=== PATIENT | female | born 1995 | race Caucasian/White ===

== ENCOUNTER 2017-04-11 14:11 | Emergency (ER) | payer SELFPAY ==
[2017-04-11 14:23] VITALS: BP 119/82
--- NOTE | 2017-04-11 15:36 | UC ---
Abdominal Pain Female HPI - HPI Summary HPI Summary: vomiting and diarrhea for three days. 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 she is able to hold down fluids. Seh denies bleeding or fever. she has well water. 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 No prior abd surgery. - History of Current Complaint Chief Complaint: UCGI Stated Complaint: VOMITING Time Seen by Provider: 04/11/17 15:24 Hx Obtained From: Patient Hx Last Menstrual Period: 05/13/14 Onset/Duration: Gradual Onset, Lasting Days Timing: Constant Severity Initially: Moderate Severity Currently: Mild Aggravating Factor(s): Food Associated Signs and Symptoms: Positive: Vomiting, Other: - she has some cramping that is short lived.. Negative: Diaphoresis, Fever, Cough, Chest Pain , Dizzy, Back Pain, Constipation, Blood in Stool, Urinary Symptoms, Vaginal Bleeding, Vaginal Discharge Allergies/Adverse Reactions: Allergies Allergy/AdvReac Type Severity Reaction Status Date / Time No Known Allergies Allergy Verified 04/11/17 14:23 PMH/Surg Hx/FS Hx/Imm Hx Previously Healthy: Yes - Surgical History Surgical History: Yes Surgery Procedure, Year, and Place: ear tubes - Family History Known Family History: Positive: Other - no gi related disease. - Social History Occupation: Employed Full-time Alcohol Use: None Substance Use Type: None Smoking Status (MU): Never Smoked Tobacco - Immunization History Vaccination Up to Date: Yes Review of Systems Gastrointestinal: Vomiting, Diarrhea All Other Systems Reviewed And Are Negative: Yes Physical Exam Triage Information Reviewed: Yes Appearance: Well-Appearing, No Pain Distress, Well-Nourished Vital Signs: Initial Vital Signs Temp 98.0 F 04/11/17 14:19 Pulse 71 04/11/17 14:19 Resp 16 04/11/17 14:19 BP 119/82 04/11/17 14:19 Pulse Ox 99 04/11/17 14:19 Vital Signs Reviewed: Yes ENT Exam: Normal Neck exam: Normal Respiratory Exam: Normal Cardiovascular Exam: Normal Abdominal Exam: Other Abdomen Description: Negative: CVA Tenderness (R), CVA Tenderness (L), Distended , Guarding - ruq tenderness without guarding and neg brian's. Musculoskeletal Exam: Normal Neurological Exam: Normal Psychological Exam: Normal Skin Exam: Normal Abd Pain Female Course/Dx - Course Course Of Treatment: no signs of dehydration. there is no serious risk factors for serious invasive gi disease. she will return for any worsening. - Differential Dx/Diagnosis Provider Diagnoses: gastroenteritis. Discharge - Discharge Plan Condition: Good Disposition: HOME Prescriptions: Ondansetron ODT TAB* [Zofran 4 MG Odt TAB*] 4 mg PO Q8H PRN #8 tab.odt PRN Reason: Vomiting Patient Education Materials: Gastroenteritis (ED) Forms: *Work Release Referrals: HECTOR Garza [Primary Care Provider] - If Needed
== END 2017-04-11 15:49 | disposition home or self-care (01) ==
LOC: UCCORT 14:11
DX: K52.9 Noninfective gastroenteritis and colitis, unspecified (principal)
CPT/HCPCS: 81003; 84702; 99212; G0463

== ENCOUNTER 2017-10-20 16:11 | Emergency (ER) | payer OTHER ==
[2017-10-20 16:33] VITALS: BP 126/64
[2017-10-20] MEDS ORDERED: NS 0.9% 1000 ML* 1,000 ML IV ONE (16:48)
--- NOTE | 2017-10-20 16:48 | UC ---
- HPI Summary HPI Summary: C/O N/V in . Worse in the last several weeks.j EDC 04/01/18. 16+5 weeks. Now having vomiting with diarrhea and dizziness with some spinning with her eyes closed. - History of Current Complaint Chief Complaint: UCGI Stated Complaint: VOMITING,DIARRHEA,DIZZINESS Hx Obtained From: Patient Chief Complaint: Other: - Nausea and vomiting with diarrhea and dizziness Onset/Duration: Started Days Ago - 2-3, Still Present Timing: Intermittent Severity: Moderate Current Severity: Moderate Pain Intensity: 8 Location of Pain: Other: - Headache Character: Dull Aggravating Factors: Nothing Alleviating Factors: Nothing Associated Signs and Symptoms: Positive: Fever, Nausea, Vomiting - Assessment Hx Now: Yes - 16+5 Expected Date of Delivery: 04/01/18 Heart Rate via Doppler: 155 Hx : 1 Hx Para: 0 SAB: 0 IEA: 0 History of Ectopic : No Hx Pelvic Inflammatory Disease: No Vaginal Bleeding Amount: None Contraction Frequency: none Hx Hysterectomy: No History of STI/STD: No - Risk Factors Ectopic Risk Factor: Negative - Allergies/Home Medications Allergies/Adverse Reactions: Allergies Allergy/AdvReac Type Severity Reaction Status Date / Time No Known Allergies Allergy Verified 10/20/17 16:23 Home Medications: Home Medications Pnv No.103/Folic/Om3s/Fish Oil [ Gummies] 1 chw PO DAILY 10/20/17 [ History Confirmed 10/20/17] PMH/Surg Hx/FS Hx/Imm Hx Previously Healthy: Yes - Surgical History Surgical History: Yes Surgery Procedure, Year, and Place: ear tubes - Family History Known Family History: Positive: Other - no gi related disease. Negative: Cardiac Disease, Diabetes - Social History Occupation: Employed Full-time Lives: Alone - with BF Alcohol Use: None Substance Use Type: None Smoking Status (MU): Former Smoker When Did the Patient Quit Smoking/Using Tobacco: 2013 - Immunization History Vaccination Up to Date: Yes Review of Systems Constitutional: Fever, Chills ENT: Sinus Congestion, Sinus Pain/Tenderness Gastrointestinal: Vomiting, Diarrhea, Nausea Is Patient Immunocompromised?: Yes - All Other Systems Reviewed And Are Negative: Yes Physical Exam - Physical Exam Triage Information Reviewed: Yes Vital Signs Reviewed: Yes Appearance: Positive: Well-Nourished, Ill-Appearing - mild, Pain Distress - mild Skin: Positive: Warm, Skin Color Reflects Adequate Perfusion Head/Face: Positive: Normal Head/Face Inspection Eyes: Positive: Normal ENT: Positive: Pharynx normal, Nasal congestion - with allergic changes Neck: Positive: Supple, Nontender, No Lymphadenopathy Respiratory/Lung Sounds: Positive: Clear to Auscultation Cardiovascular: Positive: Normal, RRR Abdomen Description: Positive: No Organomegaly, Soft, Other: - Uterus palpable 2 FB above umbilicus. Negative: Nontender - Mild epigastric tenderness Bowel Sounds: Positive: Hyperactive Musculoskeletal: Positive: Normal Neurological: Positive: Normal Psychiatric: Positive: Normal AVPU Assessment: Alert - Membranes Assessment Status of Membranes: Intact Re-Evaluation - Re-Evaluation First Eval Re-Evaluation Time: 17:50 Change: Improved - feeling better with fluids and zofran Course/Dx - Differential Diagnosis/HQI/PQRI: Appendicitis, Cholelithiasis, Hyperemesis Gravidarum, UTI - Diagnoses Provider Diagnoses: Gastroenteritis, Allergic rhinitis, Acute sinusitis, , normal, incidental Discharge - Sign-Out/Discharge Documenting (check all that apply): Discharge - Discharge Plan Condition: Stable Disposition: HOME Prescriptions: Amoxicillin PO (*) [Amoxicillin 875 MG (*)] 875 mg PO BID #20 tab Ondansetron TAB* [Zofran 4 MG Tab*] 4 mg PO Q6H PRN #30 tab PRN Reason: Nausea/Vomiting Pyridoxine HCl (Vitamin B6) [Pyridoxine HCl] 25 mg PO TID #90 tablet Patient Education Materials: Gastroenteritis (ED), Sinusitis (ED), Amoxicillin (By mouth), Allergic Rhinitis (ED) Referrals: HECTOR Garza [Primary Care Provider] - Additional Instructions: NEILMED SINUS RINSE: CHECK OUT AT [facility] Saline nasal wash helps with mucous, allergies and congestion. It can be used up to twice a day or only as needed. Use lukewarm tap water. It does not have to be sterilized or distilled water. Do 1/3 on each side and snort out of both nostrils. Repeat the process with 1/6 of the bottle on each side with snorting in between to finish the solution in the bottle Do the sinus rinse daily until you can pop your ears. Yogurt daily to try to prevent yeast infections. - Billing Disposition and Condition Condition: STABLE Disposition: HOME
[2017-10-20] MEDS ORDERED: Ondansetron INJ* 2 MG/ML VIAL IV ONE (16:49)
== END 2017-10-20 18:10 | disposition home or self-care (01) ==
LOC: UCCORT 16:11
DX: K52.9 Noninfective gastroenteritis and colitis, unspecified (principal); J30.9 Allergic rhinitis, unspecified; J01.90 Acute sinusitis, unspecified; Z33.1 Pregnant state, incidental
CPT/HCPCS: 96361; 96374; 99212; G0463; J2405

== ENCOUNTER 2018-01-18 17:20 | Emergency (ER) | payer OTHER ==
[2018-01-18] MEDS ORDERED: NS 0.9% 1000 ML* 1,000 ML IV ONE (17:41)
[2018-01-18] MEDS ORDERED: Ondansetron ODT TAB* 4 MG PO ONE (17:41)
[2018-01-18] MEDS ORDERED: Acetaminophen TAB* 325 MG PO ONE (17:41)
[2018-01-18] MEDS ORDERED: Morphine VIAL* 4 MG/ML VIAL (1 ml vial) IV ONE (18:15)
[2018-01-18] MEDS ORDERED: Metoclopramide IV* 5 MG/ML 2 ML VIAL IV ONE (18:34)
[2018-01-18] MEDS ORDERED: diPHENhydraMINE IV* 50 MG/ML 1 ml VIAL (BENADRYL) ONE (18:34)
[2018-01-18] MEDS ORDERED: Metoclopramide IV* 5 MG/ML 2 ML VIAL ONE (18:34)
[2018-01-18] MEDS ORDERED: diPHENhydraMINE IV* 50 MG/ML 1 ml VIAL (BENADRYL) IV ONE (18:34)
[2018-01-18 18:36] LABS: ABS Basophils 0 10^3/ul (0-0.2); ABS Eosinophils 0 10^3/ul (0-0.6); ABS Lymphocytes 1.4 10^3/ul (1.0-4.8); ABS Monocytes 0.9 10^3/ul (0-0.8); ABS Neutrophils 19.2 10^3/ul (1.5-7.7); ABS Nucleated RBC 0 10^3/ul; Eosinophil % 0 % (0-6); Hematocrit 38 % (35-47); Hemoglobin 12.9 g/dl (12.0-16.0); Lymphocyte % 6.5 % (25-47); Mean Corpuscular HGB Conc 34 g/dl (31-36); Mean Corpuscular Hemoglobin 30 pg (27-31); Mean Corpuscular Volume 89 fL (80-97); Mean Platelet Volume 8.1 um3 (7.4-10.4); Nucleated Red Blood Cells % 0; Platelet Count 287 10^3/ul (150-450); Red Blood Count 4.25 10^6/ul (4.00-5.40); Red Cell Distribution Width 13 % (10.5-15); White Blood Count 21.4 10^3/ul (3.5-10.8)
--- NOTE | 2018-01-18 18:44 | RAD ---
INDICATION: Right flank pain in a woman who is 30 weeks COMPARISON: None TECHNIQUE: Real-time ultrasound examination of the right kidney only including grayscale and Doppler color flow analysis. FINDINGS: The right kidney measures 12.1 x 5.2 x 5.2 cm. There is mild dilatation of the collecting system and dilatation of the ureter up to 8 mm in diameter. No obstructing renal calculi or other mass are visualized. IMPRESSION: Mild to moderate right-sided hydronephrosis. The decompressed urinary bladder could not be evaluated for a urinary jet.
[2018-01-18 18:52] LABS: EGFR Non-African American 99.1 (>60)
[2018-01-18 18:54] LABS: Urine Appearance Cloudy; Urine Blood 1+ (Negative); Urine Color Yellow; Urine Ketones 2+ (Negative); Urine Protein 1+(30 mg/dL) (Negative); Urine Specific Gravity 1.025 (1.010-1.030); Urine Urobilinogen Negative (Negative)
[2018-01-18] MEDS ORDERED: cefTRIAXone(*) 1 GM in NS 0.9% 50 ML* 50 ML IVPB ONE (18:59)
[2018-01-18 23:07] VITALS: BP 113/78
--- NOTE | 2018-01-20 00:07 | ED ---
I, Israel Peraza, scribed for Santiago Sawant MD on 01/18/18 at 2223 . Progress - Progress Note Progress Note: RENAL US: IMPRESSION: Mild to moderate right-sided hydronephrosis. The decompressed urinary bladder could not be evaluated for a urinary jet. ED PHYSICIAN REVIEWED THIS RADIOLOGY REPORT. Dr. Sawant attempted to consult urologist at 2026, however could not get ahold of one via call center. Call center will call her back. Sign-Out to Dr. Sawant via Dr. Velez Re-Evaluation - Re-Evaluation First Eval Re-Evaluation Time: 19:34 Change: Improved Comment: PAIN IS BETTER NOW, WAITING ON ULTRASOUND, DISCUSSED DISCHARGE Second Eval Re-Evaluation Time: 20:00 Comment: TALKED WITH US TECH, SHE IS 20-WEEKS , WILL NOT DO US. TOUCHING BASE WITH US TECH FOR MONITORING. Course/Dx - Course Course Of Treatment: 22-year-old female who was signed out to me by Dr. Hermosillo was 29 weeks and presents to emergency room with colicky right flank pain concerning for renal colic. A UA is concerning for urinary tract infection and patient was given pain medicines, IV Rocephin, IV fluids and reports much improvement. Given the concern for renal colic with no urology coverage over the weekend, I attempted to transfer the patient to [place], however, the urologist year was uncomfortable admitting the patient since she is 29 weeks and recommended admitted to [facility] and given IV antibiotics since there is no definitive diagnosis of a renal stone. I spoke with the ACLS [facility]IST on-call here or agrees to admit the patient here and to keep her on IV fluids and IV antibiotics and see if she gets better since this could be a urinary tract infection. I discussed the results and plan of care with the patient and her family at bedside in great details and they agree - Diagnoses Provider Diagnoses: Renal colic, UTI (urinary tract infection), Third trimester - Provider Notifications Discussed Care Of Patient With: Nina Beach - Accepts pt for admission Discharge - Sign-Out/Discharge Documenting (check all that apply): Discharge/Admit/Transfer - Admitted - OBGYN - Discharge Plan Condition: Stable Disposition: TRANSFER TO OB ([facility]) Patient Education Materials: Urinary Tract Infection in Women (ED), Renal Colic (ED) Referrals: HECTOR Garza [Medical Doctor] - Additional Instructions: RETURN TO ED FOR ANY NEW OR WORSENING SYMPTOMS - Billing Disposition and Condition Condition: STABLE Disposition: Transfer to OB ([facility]) The documentation as recorded by the Stu chan Tariq accurately reflects the service I personally performed and the decisions made by , Santiago Sawant MD.
--- NOTE | 2018-01-24 21:06 | ED ---
Nato Rodriguez Angela, scribed for Dinesh Velez MD on 01/18/18 at 1740 . - HPI Summary HPI Summary: This pt is a 22 y/o female, currently about 30 weeks , presenting to [facility] c/o sudden onset of right sided abd pain since last night. Pt reports her pain began suddenly last night and woke her up. Since then she has had intermittent sharp stabbing pain on the right side of her abd. She notes her abd pain radiates from the right side of her back to the front. This morning she woke up and vomited. Denies feeling contractions, vaginal discharge, vaginal bleeding, leaking of fluids, dysuria, diarrhea, fever, chest pain, SOB, LE edema. Pt has felt movements today. Her due date is April 06. LMP: beginning of June 2017. Denies any PMHx. [place] is Dr[place] Zel[place] (in [place]) but [place] [facility] [place] - History of Current Complaint Chief Complaint: EDOBProblems Stated Complaint: 30 WKS WITH WEAKNESS Time Seen by Provider: 01/18/18 17:33 Hx Obtained From: Patient Chief Complaint: Pain Onset/Duration: Started Hours Ago, Atraumatic, Still Present Timing: Lasting Hours Current Severity: Severe Pain Intensity: 8 Location of Pain: Right Side Character: Sharp Aggravating Factors: Nothing Alleviating Factors: Nothing Associated Signs and Symptoms: Positive: Nausea, Vomiting. Negative: Back Pain , Fever, Urinary Symptoms, Vaginal Bleeding or Discharge - Assessment Hx Now: Yes - 16+5 Hx : 1 Hx Para: 0 SAB: 0 IEA: 0 Hx Pelvic Inflammatory Disease: No Hx Hysterectomy: No - Allergies/Home Medications Allergies/Adverse Reactions: Allergies Allergy/AdvReac Type Severity Reaction Status Date / Time No Known Allergies Allergy Unverified 01/18/18 17:24 PMH/Surg Hx/FS Hx/Imm Hx Endocrine/Hematology History: Denies: Hx Diabetes Cardiovascular History: Denies: Hx Hypertension - Surgical History Surgery Procedure, Year, and Place: ear tubes Infectious Disease History: No Infectious Disease History: Denies: Traveled Outside the [place] in Last 30 Days - Family History Known Family History: Positive: Other - no gi related disease. Negative: Cardiac Disease, Diabetes - Social History Alcohol Use: None Substance Use Type: Reports: None Smoking Status (MU): Former Smoker Review of Systems Negative: Fever Negative: Chest Pain Negative: Shortness Of Breath Positive: Abdominal Pain, Vomiting, Nausea. Negative: Diarrhea Negative: dysuria, discharge, other - vaginal bleeding Negative: Edema - in LE All Other Systems Reviewed And Are Negative: Yes Physical Exam - Summary Physical Exam Summary: Appearance: Well appearing, no pain distress. Pt is comfortable. Skin: warm, dry, reflects adequate perfusion Head/face: normal Eyes: EOMI, MAMTA ENT: normal Neck: supple, non-tender Respiratory: CTA, breath sounds present. Cardiovascular: RRR, pulses symmetrical. Good pulses. Abdomen: non-tender, soft. Gravid about 4 fingerbreadths below the xiphoid with gross movement evident. Mild CVA tenderness on the right. Bowel: present Musculoskeletal: normal, strength/ROM intact. No LE edema. Neuro: normal, sensory motor intact, A&Ox3 - Physical Exam Triage Information Reviewed: Yes Vital Signs Reviewed: Yes Diagnostics - Vital Signs Vital Signs Temp Pulse Resp BP Pulse Ox 01/18/18 17:22 97.9 F 78 16 121/98 98 - Laboratory Result Diagrams: 01/18/18 18:30 01/18/18 18:30 Lab Statement: Any lab studies that have been ordered have been reviewed, and results considered in the medical decision making process. - Ultrasound No standard instances Ultrasound Interpretation: Positive (See Comments) - Renal US IMPRESSION: Mild to moderate right-sided hydronephrosis. The decompressed urinary bladder could not be evaluated for a urinary jet. Dr. Velez has reviewed this report. Ultrasound Interpretation Completed By: Radiologist Re-Evaluation - Re-Evaluation First Eval Re-Evaluation Time: 18:33 Change: Worse Comment: Pt is having a lot of pain. Second Eval Re-Evaluation Time: 18:36 Comment: Dr. Townsend, urologist who is not professional security officer today, was paged but has not returned the call. Course/Dx - Diagnoses Provider Diagnoses: Renal colic, UTI (urinary tract infection), Third trimester Discharge - Sign-Out/Discharge Documenting (check all that apply): Sign-Out Patient Signing out patient TO: Santiago Sawant - pending US preg. - Discharge Plan Condition: Stable Referrals: [facility] [Medical Doctor] - The documentation as recorded by the Nato chan Angela accurately reflects the service I personally performed and the decisions made by me, Dinesh Velez MD.
== END 2018-01-18 23:06 | disposition other institution (70) ==
LOC: ED 17:20
DX: O26.893 Other specified pregnancy related conditions, third trimester (principal); O23.43 Unspecified infection of urinary tract in pregnancy, third trimester; Z3A.30 30 weeks gestation of pregnancy
CPT/HCPCS: 36415; 76775; 80053; 81003; 81015; 85025; 87086; 99284; A9270-GY; J0696; J1200; J2270; J2765

== ENCOUNTER 2018-04-10 17:07 | Inpatient (IN) | payer OTHER ==
--- NOTE | 2018-04-10 18:02 | HP ---
General Information - General Information Maternal Age: 22 Grav: 1 Para: 0 SAB: 0 IEA: 0 Estimated Due Date: 04/06/18 Determined By: Early Ultrasound Maternal Blood Type and Rh: A Positive - Results this Serology/RPR Result: Non-Reactive Rubella Result: Immune HBsAg Result: Negative HIV Result: Negative GBS Culture Result: Negative Past Medical History Delivery History: See Records - primiparous Pertinent Past Medical History: See Records - kidney stones this Pertinent Past Surgical History: See Records - ear tubes, removal right accessory breast lobe/ nipple Pertinent Family History: Non-Contributory - Antepartal Records Antepartal Records: Reviewed, Complicated by: - marijuana use Review of Systems Constitutional: Comfortable CV Complaint: No Respiratory: Shortness of Breath: No Gastrointestinal: No Nausea/Vomiting, Normal Bowel Movement Genitourinary: No Dysuria, No Bleeding, No Leaking Fluid Musculoskeletal: No Complaint, No Epigastric Pain Neurological: No Headache, No Visual Changes Movement: Normal Exam Allergies/Adverse Reactions: Allergies No Known Allergies Allergy (Verified 04/10/18 17:29) T- 37.1 C, P-103, R-18, BP- 138/93 - Measurements Height: 5 ft 3 in Weight: 71.214 kg Weight in lbs: 157.137826 Body Mass Index (BMI): 27.8 Pre- Weight: 53.524 kg Weight Gained This : 39 lbs and 0 ozs - Exam Breast: Breast Exam Deferred CVA: No CVA Tenderness Extremities: No Edema Heart: Normal Rhythm/Heart Sounds HEENT: No Significant Findings Lungs: Clear Bilaterally Rectal: Rectal Exam Deferred Reflexes: DTR 2+ Thyroid: No Thyromegaly - Abdominal Exam Abdomen Exam: Non-Tender, Fundal Height Consistent with Dates - Ultrasound/Biophysical Profile Ultrasound Status: Not Done Targeted Exam Findings See L&D Outpatient Visit Provider Note for Findings: N/A Estimated Weight: 7# Cervical Exam: 4cm Effacement: 60% Station: -1 Presenting Part: Vertex Membrane Status: AROM Amniotic Fluid Evaluation: Clear Bleeding/Discharge: None EFM Findings - External Monitor Findings Baseline Heart Rate: 125 External Monitor Findings: Accelerations Present, No Pattern of Variable or Late Decelerations, Variability Moderate, Baseline Stable Contractions: Regular, Mild, 45-90 Seconds Contraction Frequency: 2-6 on arrival, now 2-3 post SROM Assessment/Plan - Assessment 22 year old at 40 4/7 weeks gestation in early labor w/ some elevated BPs, no evidence of acidemia - Obstetrical Risk Factors Obstetrical Risk Factors: Post-Dates - Plan Plan: Admit - Anticipate Vaginal Delivery Plan Comment: Discussed options with pt, including expectant management, AROM, and Pitocin augmentation. Upon discussion pt prefers to try AROM alone and initiate Pitocin if needed. After discussing risks and benefits, AROM done with clear fluid. Pt had mildly elevated BPs in office and on arrival, so preeclampsia labs drawn. Will monitor for now, will do intermittent if Cat I tracing post AROM. Anticipate . - Date/Time of Admission Date of Admission: 04/10/18 Time of Admission: 17:32
[2018-04-10 18:03] LABS: ABS Basophils 0 10^3/ul (0-0.2); ABS Eosinophils 0.1 10^3/ul (0-0.6); ABS Lymphocytes 2.2 10^3/ul (1.0-4.8); ABS Monocytes 0.9 10^3/ul (0-0.8); ABS Neutrophils 9.6 10^3/ul (1.5-7.7); ABS Nucleated RBC 0 10^3/ul; Eosinophil % 0.5 % (0-6); Hematocrit 33 % (35-47); Hemoglobin 11.1 g/dl (12.0-16.0); Mean Corpuscular HGB Conc 33 g/dl (31-36); Mean Corpuscular Hemoglobin 29 pg (27-31); Mean Corpuscular Volume 87 fL (80-97); Mean Platelet Volume 9.8 um3 (7.4-10.4); Nucleated Red Blood Cells % 0; Platelet Count 208 10^3/ul (150-450); Red Blood Count 3.85 10^6/ul (4.00-5.40); Red Cell Distribution Width 13 % (10.5-15); White Blood Count 12.8 10^3/ul (3.5-10.8)
[2018-04-10 18:19] LABS: EGFR Non-African American 82.2 (>60); Uric Acid 7.1 mg/dL (2.3-6.6)
[2018-04-10 19:26] LABS: Urine Appearance Cloudy; Urine Blood 2+ (Negative); Urine Color Yellow; Urine Ketones Negative (Negative); Urine Protein 2+(100 mg/dL) (Negative); Urine Red Blood Cell 3+(>10/hpf) (Absent); Urine Specific Gravity 1.023 (1.010-1.030); Urine Urobilinogen Negative (Negative); Urine White Blood Cell 3+(>20/hpf) (Absent)
[2018-04-10] MEDS ORDERED: Oxytocin in LR* 20 UNITS/1,000 ML BAG IVPB ONE (20:04)
[2018-04-10] MEDS ORDERED: Oxytocin in LR* 20 UNITS/1,000 ML BAG IVPB SCH (21:00)
[2018-04-11] MEDS ORDERED: OBEPIDURAL* 250 ML EPIDURAL ONE (03:38)
[2018-04-11] MEDS ORDERED: fentaNYL* 50 MCG/ML 2 ML VIAL (100 MCG VIAL) ONE (04:11)
[2018-04-11] MEDS ORDERED: Famotidine TAB* 20 MG PO PRN (04:39)
[2018-04-11] MEDS ORDERED: Sodium Citrate/Citric Acid* 15 ML UDC PO PRN (04:39)
[2018-04-11] MEDS ORDERED: EPHEDrine (Pressors)* 50 MG/ML VIAL IV PUSH PRN ×2 (04:39)
[2018-04-11] MEDS ORDERED: Phenylephrine IV* 40 MCG/ML 10 ML SYRINGE IV PUSH PRN ×2 (04:39)
[2018-04-11] MEDS ORDERED: fentaNYL* 50 MCG/ML 2 ML VIAL (100 MCG VIAL) IV SLOW PU ONE (04:39)
[2018-04-11] MEDS ORDERED: OBEPIDURAL* 250 ML EPIDURAL SCH (05:00)
[2018-04-11] MEDS ORDERED: Glycerin ADULT SUPP PR PRN (09:56)
[2018-04-11] MEDS ORDERED: Witch Hazel PAD* JAR TOPICAL PRN (09:56)
[2018-04-11] MEDS ORDERED: Dibucaine 1% 28.35 GM TUBE PR PRN (09:56)
[2018-04-11] MEDS ORDERED: Oxytocin in LR* 20 UNITS/1,000 ML BAG IVPB SCH (10:00)
--- NOTE | 2018-04-11 10:07 | PROCNOTE ---
[facility] OB: Delivery Note - Delivery A Date of : 04/11/18 Time of : 09:43 [place] Sex: Female Score 1 Minute: 9 Score 5 Minutes: 9 Gestational Age in Weeks and Days at Delivery: 40 Weeks and 5 Days Delivery Method: Spontaneous Vaginal Labor: Spontaneous Amniotic Fluid: Clear Estimated Blood Loss: 200 Anesthesia/Analgesia: CEI for Labor, Nitrous-Labor Anesthesia Comment: Regi Delivered By: Deandra Wesley - Nursery Level of Nursery: Regular/Bedside - Perineum Perineal Injury: None/Intact - Events Delivery Events of Note: Pitocin During Labor - Additional Delivery Notes Additional Delivery Notes: Pt 9 cm, vtx -1 at 0815, feeling pressure. Fully, +2 at 0830, encouraged to push. SVB LFC, OA over intact perineum. Infant pink with stimulation, vigorous cry. Placenta Fany. FF with massage, IV with pitocin running. Mother and baby in good condition
[2018-04-11] MEDS: Ibuprofen TAB* 600 MG PO PRN (11:37)
[2018-04-11] MEDS: Docusate CAP* 100 MG PO SCH ×2 (14:23→19:40)
[2018-04-11] MEDS: Acetaminophen TAB* 325 MG PO PRN (18:48)
[2018-04-12] MEDS ORDERED: Oxytocin in LR* 20 UNITS/1,000 ML BAG IVPB ONE (02:15)
[2018-04-12] MEDS ORDERED: fentaNYL* 50 MCG/ML 2 ML VIAL (100 MCG VIAL) ONE (02:51)
[2018-04-12] MEDS ORDERED: Oxytocin in LR* 20 UNITS/1,000 ML BAG IVPB SCH (03:00)
[2018-04-12 03:01] LABS: ABS Basophils 0.1 10^3/ul (0-0.2); ABS Eosinophils 0.1 10^3/ul (0-0.6); ABS Lymphocytes 3.4 10^3/ul (1.0-4.8); ABS Monocytes 1.5 10^3/ul (0-0.8); ABS Neutrophils 15.1 10^3/ul (1.5-7.7); ABS Nucleated RBC 0 10^3/ul; Eosinophil % 0.5 % (0-6); Hematocrit 27 % (35-47); Lymphocyte % 16.9 % (25-47); Mean Corpuscular HGB Conc 34 g/dl (31-36); Mean Corpuscular Hemoglobin 29 pg (27-31); Mean Corpuscular Volume 88 fL (80-97); Mean Platelet Volume 9.8 um3 (7.4-10.4); Nucleated Red Blood Cells % 0; Platelet Count 214 10^3/ul (150-450); Red Blood Count 3.06 10^6/ul (4.00-5.40); Red Cell Distribution Width 13 % (10.5-15); White Blood Count 20.2 10^3/ul (3.5-10.8)
[2018-04-12] MEDS ORDERED: fentaNYL* 50 MCG/ML 2 ML VIAL (100 MCG VIAL) IV ONE (03:03)
[2018-04-12] MEDS ORDERED: ceFAZolin 2 GM in NS PREMIX(*) 2 GM/100 ML BAG IVPB ONE (03:04)
[2018-04-12] MEDS: Acetaminophen TAB* 325 MG PO PRN ×3 (08:12→18:33)
[2018-04-12] MEDS: Docusate CAP* 100 MG PO SCH ×2 (08:12→13:49)
[2018-04-12] MEDS: Ferrous Gluconate TAB* 324 MG TAB PO SCH (08:12)
[2018-04-12] MEDS: Ibuprofen TAB* 600 MG PO PRN ×3 (08:13→21:30)
[2018-04-12 10:45] LABS: ABS Basophils 0 10^3/ul (0-0.2); ABS Eosinophils 0 10^3/ul (0-0.6); ABS Lymphocytes 2.4 10^3/ul (1.0-4.8); ABS Nucleated RBC 0 10^3/ul; Eosinophil % 0.1 % (0-6); Hematocrit 22 % (35-47); Hemoglobin 7.3 g/dl (12.0-16.0); Lymphocyte % 12.3 % (25-47); Mean Corpuscular HGB Conc 33 g/dl (31-36); Mean Corpuscular Hemoglobin 29 pg (27-31); Mean Corpuscular Volume 86 fL (80-97); Mean Platelet Volume 9.2 um3 (7.4-10.4); Nucleated Red Blood Cells % 0; Platelet Count 174 10^3/ul (150-450); Red Blood Count 2.53 10^6/ul (4.00-5.40); Red Cell Distribution Width 14 % (10.5-15); White Blood Count 19.4 10^3/ul (3.5-10.8)
[2018-04-13 07:12] LABS: Hematocrit 21 % (35-47); Hemoglobin 6.9 g/dl (12.0-16.0); Mean Corpuscular HGB Conc 33 g/dl (31-36); Mean Corpuscular Hemoglobin 29 pg (27-31); Mean Corpuscular Volume 87 fL (80-97); Mean Platelet Volume 8.6 um3 (7.4-10.4); Platelet Count 219 10^3/ul (150-450); Red Blood Count 2.42 10^6/ul (4.00-5.40); Red Cell Distribution Width 14 % (10.5-15); White Blood Count 12.4 10^3/ul (3.5-10.8)
[2018-04-13 07:31] VITALS: BP 134/82
[2018-04-13] MEDS: Ibuprofen TAB* 600 MG PO PRN (08:15)
[2018-04-13] MEDS: Docusate CAP* 100 MG PO SCH ×2 (08:21→10:10)
[2018-04-13] MEDS: Ferrous Gluconate TAB* 324 MG TAB PO SCH (10:11)
== END 2018-04-13 11:31 | disposition home or self-care (01) | DRG 560 ==
LOC: MCHOBOUT 17:07 → MCHOB 17:32
PROVIDERS: ADMIT Midwife; ATTEND Midwife
PROC: 10E0XZZ Delivery of Products of Conception, External Approach (ICD-10-PCS; principal; 2018-04-11)
PROC: 10907ZC Drainage of Amniotic Fluid, Therapeutic from Products of Conception, Via Natural or Artificial Opening (ICD-10-PCS; 2018-04-11)
PROC: 4A1HXCZ Monitoring of Products of Conception, Cardiac Rate, External Approach (ICD-10-PCS; 2018-04-11)
PROC: 0UC97ZZ Extirpation of Matter from Uterus, Via Natural or Artificial Opening (ICD-10-PCS; 2018-04-11)
DX: O48.0 Post-term pregnancy (principal); O72.2 Delayed and secondary postpartum hemorrhage; O99.324 Drug use complicating childbirth; D62 Acute posthemorrhagic anemia; F12.90 Cannabis use, unspecified, uncomplicated; O14.94 Unspecified pre-eclampsia, complicating childbirth; O90.81 Anemia of the puerperium; M41.9 Scoliosis, unspecified; O99.89 Other specified diseases and conditions complicating pregnancy, childbirth and the puerperium; N20.0 Calculus of kidney; Z3A.40 40 weeks gestation of pregnancy; Z37.0 Single live birth
CPT/HCPCS: 36415; 80053; 80307; 81003; 81015; 84550; 85025; 85027; 86850; 86900; 86901; 87086; A9270-GY; J0690; J3010

== ENCOUNTER 2018-05-06 23:14 | Emergency (ER) | payer OTHER ==
[2018-05-06] MEDS ORDERED: Ketorolac INJ* 30 MG/ML 1 ML VIAL IV PUSH ONE (23:28)
[2018-05-06] MEDS ORDERED: NS 0.9% 1000 ML* 1,000 ML IV ONE (23:29)
[2018-05-06] MEDS ORDERED: Ondansetron INJ* 2 MG/ML VIAL IV ONE (23:29)
--- NOTE | 2018-05-06 23:38 | ED ---
GI/ HPI - HPI Summary HPI Summary: 22 year old female presents with left flank pain for the past day. States that radiates across to left side of abdomen. She admits to nausea and vomiting. States the nausea and vomiting started after the pain. She hasn't taking anything for her symptoms. She hasnt been able to keep anything down. Still this feels similar to when she had a kidney stone when she was . She denies any chance she is . No blood in her stool. No urinary symptoms. No fevers. No diarrhea. No previous belly surgeries. She has no medical conditions. No abnormal vaginal discharge. - History of Current Complaint Chief Complaint: EDFlankPain Time Seen by Provider: 05/06/18 23:22 Stated Complaint: FLANK PAIN Hx Last Menstrual Period: 05/13/14 Pain Intensity: 9 - Allergy/Home Medications Allergies/Adverse Reactions: Allergies Allergy/AdvReac Type Severity Reaction Status Date / Time No Known Allergies Allergy Verified 04/10/18 17:29 PMH/Surg Hx/FS Hx/Imm Hx Endocrine/Hematology History: Denies: Hx Anticoagulant Therapy Cardiovascular History: Denies: Hx Hypertension - Surgical History Surgery Procedure, Year, and Place: ear tubes - Immunization History Date of Tetanus Vaccine: unk Date of Influenza Vaccine: unk Infectious Disease History: No Infectious Disease History: Denies: Traveled Outside the [place] in Last 30 Days - Family History Known Family History: Positive: Other - no gi related disease. Negative: Cardiac Disease, Diabetes - Social History Alcohol Use: None Substance Use Type: Reports: None Smoking Status (MU): Never Smoked Tobacco Have You Smoked in the Last Year: No Review of Systems Negative: Fever Negative: Chest Pain Negative: Shortness Of Breath Positive: Abdominal Pain, Vomiting, Nausea. Negative: Diarrhea Positive: flank pain All Other Systems Reviewed And Are Negative: Yes Physical Exam Triage Information Reviewed: Yes Vital Signs On Initial Exam: Initial Vitals Temp Pulse Resp BP Pulse Ox 97.6 F 78 16 132/76 99 05/06/18 23:16 05/06/18 23:16 05/06/18 23:16 05/06/18 23:16 05/06/18 23:16 Vital Signs Reviewed: Yes Appearance: Positive: Well-Appearing Skin: Positive: Warm, Dry Head/Face: Positive: Normal Head/Face Inspection Eyes: Positive: Normal, Conjunctiva Clear ENT: Positive: Pharynx normal Respiratory/Lung Sounds: Positive: Clear to Auscultation, Breath Sounds Present Cardiovascular: Positive: Normal, RRR Abdomen Description: Positive: Nontender, Soft, CVA Tenderness (L), Other: - mild suprapubic tenderness Bowel Sounds: Positive: Present Musculoskeletal: Positive: Normal Neurological: Positive: Normal Psychiatric: Positive: Normal Diagnostics - Vital Signs Vital Signs Temp Pulse Resp BP Pulse Ox 05/06/18 23:16 97.6 F 78 16 132/76 99 - Laboratory Result Diagrams: 05/06/18 23:30 05/06/18 23:30 Lab Statement: Any lab studies that have been ordered have been reviewed, and results considered in the medical decision making process. - CT abd CT Interpretation: Positive (See Comments) - IMPRESSION: There is a 4 mm calculus at the left ureterovesical junction with mild left obstructive uropathy. CT Interpretation Completed By: Radiologist Re-Evaluation - Re-Evaluation First Eval Re-Evaluation Time: 00:16 Change: Improved Comment: feeling better after toradol. GIGU Course/Dx - Course Course Of Treatment: 22 year old female presents with left flank pain for the past day. States that radiates across to left side of abdomen. She admits to nausea and vomiting. States the nausea and vomiting started after the pain. She hasn't taking anything for her symptoms. She hasnt been able to keep anything down. Still this feels similar to when she had a kidney stone when she was . She denies any chance she is . No blood in her stool. No urinary symptoms. No fevers. No diarrhea. No previous belly surgeries. She has no medical conditions. No abnormal vaginal discharge. on exam has tenderness left flank. mild suprapubic tenderness. labs wbc normal. crp normal. CT shows 4mm stone at uvj. uti possible infection so will treat with augmentin as patient is currently breast feeding. gave flomax and pain medication. patient understand and agrees with plan. - Diagnoses Differential Diagnoses - Female: Pyelonephritis, Urinary Tract Infection, Ureteral Calculi Provider Diagnoses: UTI (urinary tract infection), Ureteral stone Discharge - Sign-Out/Discharge Documenting (check all that apply): Patient Departure - Discharge Plan Condition: Good Disposition: HOME Prescriptions: Amoxicillin/Clavulanate TAB* [Augmentin TAB 500 mg*] 500 mg PO BID #9 tab HYDROcodone/ACETAMIN 5-325 MG* [[place] 5-325 TAB*] 1 tab PO Q6H PRN #12 tab MDD 4 PRN Reason: Pain Ondansetron ODT TAB* [Zofran 4 MG Odt TAB*] 4 mg PO Q6H PRN #16 tab.odt PRN Reason: Nausea Tamsulosin CAP* [Flomax CAP*] 0.4 mg PO DAILY #5 cap Patient Education Materials: Ureteral Stones (ED) Referrals: No Primary Care Phys,NOPCP [Primary Care Provider] - Toi Becker MD [Medical Doctor] - Additional Instructions: Take ibuprofen every 6 hours and narcotic as needed every 6 hours Take augmentin twice a day for 5 days Take Zofran every 6 hours for nausea as needed Take Flomax daily starting tomorrow, first dose given in ED until stone expelled , make sure stand up slowly Follow up with urology, call office tomorrow for appointment Strain urine until collect stone Return to ED if unable to manage pain at home, develop fever, or any new or worsening symptoms - Billing Disposition and Condition Condition: GOOD Disposition: Home
[2018-05-06 23:42] LABS: ABS Basophils 0 10^3/ul (0-0.2); ABS Eosinophils 0.1 10^3/ul (0-0.6); ABS Lymphocytes 1.7 10^3/ul (1.0-4.8); ABS Monocytes 0.4 10^3/ul (0-0.8); ABS Neutrophils 8.3 10^3/ul (1.5-7.7); ABS Nucleated RBC 0 10^3/ul; Eosinophil % 0.6 % (0-6); Hematocrit 32 % (35-47); Hemoglobin 10.5 g/dl (12.0-16.0); Lymphocyte % 16.5 % (25-47); Mean Corpuscular HGB Conc 33 g/dl (31-36); Mean Corpuscular Hemoglobin 28 pg (27-31); Mean Corpuscular Volume 85 fL (80-97); Nucleated Red Blood Cells % 0; Platelet Count 411 10^3/ul (150-450); Red Blood Count 3.79 10^6/ul (4.00-5.40); Red Cell Distribution Width 14 % (10.5-15); White Blood Count 10.5 10^3/ul (3.5-10.8)
[2018-05-07 00:02] LABS: EGFR Non-African American 83.3 (>60)
[2018-05-07 01:56] LABS: Urine Appearance Cloudy; Urine Blood 3+ (Negative); Urine Color Yellow; Urine Ketones 1+ (Negative); Urine Protein 1+(30 mg/dL) (Negative); Urine Red Blood Cell 3+(>10/hpf) (Absent); Urine Specific Gravity 1.023 (1.010-1.030); Urine Urobilinogen Negative (Negative); Urine White Blood Cell 3+(>20/hpf) (Absent)
--- NOTE | 2018-05-07 02:12 | RAD ---
EXAM: CT Abdomen and Pelvis Without Intravenous Contrast CLINICAL HISTORY: 22 years old, female; Pain; Abdominal pain; Flank; Left; Additional info: Left flank pain TECHNIQUE: Axial computed tomography images of the abdomen and pelvis without intravenous contrast. All CT scans at this facility use at least one of these dose optimization techniques: automated exposure control; mA and/or kV adjustment per patient size (includes targeted exams where dose is matched to clinical indication); or iterative reconstruction. Coronal and sagittal reformatted images were created and reviewed. COMPARISON: RENAL RT US RENAL LIMITED RIGHT 01/18/2018 5:55 PM FINDINGS: Lung bases: Unremarkable. No mass. No consolidation. ABDOMEN: Liver: There is mild hepatomegaly. Gallbladder and bile ducts: Unremarkable. No calcified stones. No ductal dilation. Pancreas: Unremarkable. No ductal dilation. Spleen: Unremarkable. No splenomegaly. Adrenals: Unremarkable. No mass. Kidneys and ureters: There is a 4 mm calculus at the left ureterovesical junction with mild left obstructive uropathy. Stomach and bowel: Unremarkable. No obstruction. No mucosal thickening. PELVIS: Appendix: No findings to suggest acute appendicitis. Bladder: Unremarkable. No stones. Reproductive: Unremarkable as visualized. ABDOMEN and PELVIS: Intraperitoneal space: Unremarkable. No free air. No significant fluid collection. Bones/joints: No acute fracture. No dislocation. Soft tissues: Unremarkable. Vasculature: Unremarkable. No abdominal aortic aneurysm. Lymph nodes: Unremarkable. No enlarged lymph nodes. IMPRESSION: There is a 4 mm calculus at the left ureterovesical junction with mild left obstructive uropathy. To contact [facility] with a general question: [facility] - [phone] For direct physician to physician contact: Physician Hotline - [phone] [facility] ([facility] Facility ID #[id number])
[2018-05-07] MEDS ORDERED: Tamsulosin CAP* 0.4 MG PO ONE (02:16)
[2018-05-07] MEDS ORDERED: Amoxicillin/Clavulanate TAB* 500 MG PO ONE (02:20)
[2018-05-07] MEDS ORDERED: O ndansetron ODT 4MG 2TAB PRPK 4 MG PAK PO ONE (02:26)
[2018-05-07] MEDS ORDERED: Ondansetron ODT TAB* 4 MG ONE (02:53)
[2018-05-07 02:59] VITALS: BP 113/73
== END 2018-05-07 03:01 | disposition home or self-care (01) ==
LOC: ED 23:14
DX: N39.0 Urinary tract infection, site not specified (principal); N20.1 Calculus of ureter; R10.84 Generalized abdominal pain; R11.2 Nausea with vomiting, unspecified
CPT/HCPCS: 36415; 74176; 80053; 81003; 81015; 83690; 84702; 85025; 86140; 87086; 96361; 96374; 96375; 99283; A9270-GY; J1885; J2405

== ENCOUNTER 2018-10-24 16:44 | Emergency (ER) | payer OTHER ==
--- OUTSIDE RECORDS SUMMARY | 2018-10-24 17:01 | XMS REPORT | Continuity of Care Document ---
:1995 Author Organization [facility] Address [address] [place], [place] [id number] Phone Care Team Providers Name Role Phone Theresa Bolanos NP Unavailable Unavailable Allergies, Adverse Reactions, Alerts Substance Reaction Status No Known Allergies Active Medications Medication Instructions Dosage Effective Dates (start - stop) Status Comments No Drug Therapy Prescribed Problems Condition Effective Dates (start - Clinical Status Comments stop) Human immunodeficiency virus [HIV] - counseling Encounter for test, result positive Weeks of gestation of not specified Procedures Procedure Date PREVENTIVE COUNSELING, Under 8 Minutes POSITIVE TEST ROUTINE VENIPUNCTURE Contraceptive Track Greaser.Svc. Other Track Greaser.Svc. STI Track Greaser.Svc. POS PREG DESIRED LATER REFERRAL FOR OTHER Medical Services MA ONLY VISIT NEW Lab RH Factor Results Test Name Date and Time Measure Units Reference Range Abnormal Flag Status Comments Panel Description: High Sensitivity Urine Test Final High Sensitivity Urine 15:03:53 PositiveInternal Quality Final Test Control: Positive NOTE: This patient has pending results not included in this document. Advance Directives Directive Yes / No Effective Date File Name No information Encounters Encounter Practice Location Reason(s) Diagnoses Date Provider Providers Description For Visit Copied on Encounter [facility] [place] Test immunodeficiency . Provider: [facility] (chief virus [HIV] [address] complaint) counselingEncounter Juan Bolanos [facility], [address] [place], [address], [place], [place]Weeks of [place], [place], [place], [place] [address]. [place], [address]. [id number], not tel: tel:+ [place] specified [phone] tel:[phone] Family History Family Member Diagnosis Age At Onset No information Immunizations Vaccine Date Status Comments No information Payers Payer name Insurance type Covered green party ID Authorization(s) Rahul OSORIO [facility] CI [id number] Social History Type Description Quantity Date Captured Comments Alcohol Use Details Unknown Caffeine Use Details Unknown Tobacco Use Status Current non-smoker Smoking Status Never smoker Non-Smoking Tobacco : No Details Available : No Details Available 2018 Use Details Sex Female Vital Signs Date / Height Weight BMI Pulse Blood Temperature Respiratory Body Head BMI Pulse Inhaled Time: Rate Pressure Rate Surface Circumference percentile Ox Ox Area No information Chief Complaint And Reason For Visit Most recent encounter only, dated '10/17/2018 14:30'. Test ( chief complaint) Reason For Referral Reason For Referral No information Plan Of Treatment Date Type Action Status Appointment ALLY SALINAS BOOKED History Of Present Illness Encounter Date Complaint History Of Present Illness No information Functional Status Date Functional Assessment No information Medications Administered Medication Instructions Dosage Effective Dates (start - stop) Status Comments No Drug Therapy Prescribed Instructions Date Instruction Additional Information No information Assessments Type Assessment Date assessment Human immunodeficiency virus [HIV] counseling assessment Encounter for test, result positive assessment Weeks of gestation of not specified Goals Health Concern Goal Type Priority Status Date No information Medical Equipment Description Device Rozet Device Identifier Effective Dates (start - stop ) Status No information Mental Status Date Cognitive Assessment No information Health Concerns Observation Date No information Concern Status Date No information
--- OUTSIDE RECORDS SUMMARY | 2018-10-24 17:01 | XMS REPORT | Continuity of Care Document ---
:1995 External Reference #:[id number] Author Name Letha Montgomery NP Address [address] [place] [address] Care Team Providers Name Role Phone [facility] Primary Care Physician Unavailable Payers Date Identification Numbers Payment Provider Subscriber Policy Number: [id number] [facility] Jena Rodriguez PayID: [id number] [address] [place] [address] Policy Number: [id number] Medicaid -Jacobus Jena Rodriguez PayID: [id number] [address] [place] [address] Advance Directives Description No Information Available Problems Description No Active Problems Family History Date Family Member(s) Observation Comments Father Alive no contact Mother Alive Mother No Current Problems Siblings 3 3 half brothers Social History Type Date Description Comments Sex Female Education Highest level completed, 11th grade Marital Status Legal Status: Never Work Status Part-Time Employment [employer] Tobacco Use Reviewed: 10/15/18 Never Smoked Cigars Tobacco Use Reviewed: 10/15/18 Never Smoked A Pipe Smoking Status Reviewed: 10/15/18 Never Smoked A Pipe Tobacco Use Reviewed: 10/15/18 Never Used Smokeless Tobacco ETOH Use Occasionally consumes alcohol Recreational Drug Use Denies Drug Use Tobacco Use Reviewed: 10/15/18 Patient has never smoked Recreational Drug Use Teaching provided regarding Naloxone/Narcan Training Available At [facility] Recreational Drug Use Formerly used Marijuana sporadically Tattoo/Piercing Tattoo Tattoo/Piercing Tattoos professionally done Condom Use Always Contraceptive Methods Current methods include oral contraceptives Contraceptive Methods Past methods include depo-provera injection Age 1st Champion 17 Years Old STD's No STD History UNKNOWN 10/15/2018 Never E-Cigarette user ABAD: 03/31/2018 Estimated Date of Delivery Based on LMP Allergies, Adverse Reactions, Alerts Date Description Reaction Status Severity Comments 11/02/2014 NKDA Active 11/02/2014 Seasonal Active Medications Medication Date Status Form Strength Qnty SIG Indications Ordering Provider Econtra Ez Hx Tablets 1.5mg 1tabs as directed Z30.012 Brittany M 016 - Kelchner, [employer]PECTOR 017 Daily Vitamin Hx Tablets 90tabs 1 tablet by Z30.40 Farheen 015 - mouth every Servies, [employer] MET[employer] INSPECTOR day 019 Medications Administered in Office Medication Date Status Form Strength Qnty SIG Indications Ordering Provider Depo-Provera 09/07 Administered Suspension 150mg/ml 1ml 1 Z30.42 Brittany intramusc Kelchner, ular [employer] METER INSPECTOR injection every 12 weeks until annual exam Depo-Provera 1ml11 Administered Suspension 150mg/ml 1ml 1 /04/30 intramusc Kelchner, 016 ular ELECTRIC METER INSPECTOR injection every 12 weeks until annual exam Depo-Provera 1ml08 Administered Suspension 150mg/ml 1ml 1 Z30.40 Brittany intramusc Kelchner, 016 ular ELECTR[employer] METER INSPECTOR injection every 12 weeks until annual exam Depo-Provera 1ml05 Administered Suspension 150mg/ml 1ml 1 /06/30 intramusc Kelchner, 016 ular ELECTR[employer] METER INSPECTOR injection every 12 weeks until annual exam Depo-Provera 1ml02 Administered Suspension 150mg/ml 1ml 1 /22/09 intramusc Kelchner, 016 ular ELECTRIC METER INSPECTOR injection every 12 weeks until annual exam Depo-Provera 1ml12 Administered Suspension 150mg/ml 1ml 1 injection Green, 015 every 12 ELECTRIC METER INSPECTOR weeks until ae Depo-Provera 03/18 Administered Suspension 150mg/ml 1ml 1 Z30.40 Farheen injection Servies, - every 12 ELECTRIC METER INSPECTOR until ae Depo-Provera 1ml06 Administered Suspension 150mg/ml 1ml 1 Farheen /22/09 injection Servies, 015 every 12 ELECTRIC METER INSPECTOR weeks until ae Depo-Provera 1ml04 Administered Suspension 150mg/ml 1ml 1 Farheen /12/29 injection Servies, 015 every 12 ELECTRIC METER INSPECTOR weeks until ae J-Depo Provera 1ml02 Administered Injection Brittany M Injection /03/31 Caitlin Ventura [employer] INSPECTOR J-Depo Provera 06/08 Administered Injection Nicki Injection /2015 Eduardo Emergency 03/14 Administered Injection Brittany M Contraceptive /2015 GARO Ventura J-Depo Provera 03/14 Administered Injection Brittany M Injection /2015 GARO Ventura J-Depo Provera 12/08 Administered Injection RN Injection /2015 Schedule J-Depo Provera 09/22 Administered Injection Nicki Injection /2015 Eduardo J-Depo Provera 07/02 Administered Injection Nicki Injection /2014 Eduardo J-Depo Provera 04/13 Administered Injection Yaw, Injection /2014 JESUS Butler J-Depo Provera 01/20 Administered Injection Nicki Injection /2014 Eduardo J-Depo Provera 11/02 Administered Injection Nicki Injection /2014 Eduardo J-Depo Provera 08/13 Administered Injection Azam Injection /2014 GARO Green Immunizations CPT Code Status Date Vaccine Lot # [id number] Given 10/30/2011 HPV 4 Vaccine [id number] Given 06/26/2011 HPV 4 Vaccine [id number] Given 03/13/2011 HPV 4 Vaccine Vital Signs Date Vital Result Comment 10/15/2018 11:55am BP Systolic 136 mmHg electronic BP Diastolic 87 mmHg electronic BP Systolic Recheck 120 mmHg manual BP Diastolic Recheck 72 mmHg manual Height 63 inches 5'3" Weight 134.00 lb BMI (Body Mass Index) 23.7 kg/m2 08/07/2017 2:17pm BP Systolic 110 mmHg BP Diastolic 68 mmHg Weight 114.00 lb 09/07/2016 10:58am BP Systolic 130 mmHg BP Diastolic 78 mmHg Weight 138.00 lb 06/08/2016 10:20am BP Systolic 116 mmHg BP Diastolic 72 mmHg Weight 136.00 lb 03/28/2016 3:00pm BP Systolic 118 mmHg BP Diastolic 74 mmHg Weight 138.00 lb 03/14/2016 10:30am BP Systolic 110 mmHg BP Diastolic 60 mmHg Weight 138.00 lb 12/09/2015 3:07pm BP Systolic 116 mmHg BP Diastolic 60 mmHg Weight 137.00 lb 09/22/2015 3:49pm BP Systolic 118 mmHg BP Diastolic 64 mmHg Weight 136.00 lb 07/02/2015 2:53pm BP Systolic 112 mmHg BP Diastolic 74 mmHg Weight 123.00 lb 04/13/2015 1:58pm BP Systolic 118 mmHg BP Diastolic 62 mmHg Weight 116.00 lb 03/18/2015 2:07pm BP Systolic 108 mmHg BP Diastolic 70 mmHg Height 63 inches 5'3" Weight 112.00 lb BMI (Body Mass Index) 19.8 kg/m2 Last Menstrual Period [id number] 01/20/2015 3:12pm BP Systolic 104 mmHg BP Diastolic 60 mmHg Weight 108.00 lb 11/02/2014 1:37pm BP Systolic 110 mmHg BP Diastolic 64 mmHg Weight 104.00 lb Results Test Date Facility Test Result H/L Range Note Laboratory test 10/15/2018 [facility] Test positive finding Urine..... Laboratory test 08/07/2017 [facility] Test positive finding Urine..... Laboratory test 09/07/2016 [facility] C.Trachomatis NOT DETECTED Not Detected 1 finding Rna,Tma W/RFX N.Gonorrhoeae Rna,Tma Urinalysis DIP 09/07/2016 [facility] Urine Protein neg Only.... Random Urine Glucose QN Random neg Laboratory test finding 09/07/2016 [facility] Test Urine..... neg Laboratory test finding 03/28/2016 [facility] Test Urine..... neg Urinalysis DIP Only.... 03/14/2016 [facility] Urine Protein Random neg Urine Glucose QN Random neg Laboratory test 03/14/2016 [facility] Test neg finding Urine..... Laboratory test 03/18/2015 [facility] C.Trachomatis NOT DETECTED Not Detected 2 finding Rna,Tma W/RFX N.Gonorrhoeae Rna,Tma [place] Annual [facility] 03/18/2015 [facility] HGB Blood.... 12.7 Set Urinalysis DIP 03/18/2015 [facility] Urine Protein N Only.... Random Urine Glucose QN Random N 1 This test was performed using the APTIMA COMBO2(R) Assay (GEN-PROBE(R). The analytical performance characteristics of this assay, when used to test SurePath(R) specimens have been determined by [facility]. 2 This test was performed using the APTIMA COMBO2(R) Assay (GEN-PROBE(R). The analytical performance characteristics of this assay, when used to test SurePath(R) specimens have been determined by [facility]. Procedures Date Code Description Status 09/07/2016 92265 Therapeutic, Prophylactic Or Diagnostic Injection Subq/Im Completed 06/08/2016 23463 Therapeutic, Prophylactic Or Diagnostic Injection Subq/Im Completed 03/14/2016 71763 Therapeutic, Prophylactic Or Diagnostic Injection Subq/Im Completed 12/09/2015 41478 Therapeutic, Prophylactic Or Diagnostic Injection Subq/Im Completed 09/22/2015 56959 Therapeutic, Prophylactic Or Diagnostic Injection Subq/Im Completed 07/02/2015 26528 Therapeutic, Prophylactic Or Diagnostic Injection Subq/Im Completed 04/13/2015 75938 Therapeutic, Prophylactic Or Diagnostic Injection Subq/Im Completed 01/20/2015 17418 Therapeutic, Prophylactic Or Diagnostic Injection Subq/Im Completed 11/02/2014 07199 Therapeutic, Prophylactic Or Diagnostic Injection Subq/Im Completed 08/13/2014 79116 Therapeutic, Prophylactic Or Diagnostic Injection Subq/Im Completed Encounters Type Date Location Provider Dx Diagnosis Office Visit 08/07/2017 9:00a [facility] Nicki Eduardo Z32.01 Encounter for test, result positive Plan of Treatment 10/15/2018 - Letha Montgomery, NPZ32.01 Encounter for test, result positiveComments:Advised to seek emergency care if she starts having vaginal bleeding, sudden severe headache. [facility] and Dr. Castillo Encouraged her toschedule an appointment for control if she does not [facility]
--- OUTSIDE RECORDS SUMMARY | 2018-10-24 17:01 | XMS REPORT | Continuity of Care Document ---
:1995 Author Organization [facility] Address [address], [place] [id number] Phone Care Team Providers Name Role Phone [...] positive Weeks of gestation of not specified RhD positive - Active Procedures Procedure Date No information Results Test Name Date and Time Measure Units Reference Range Abnormal Flag Status Comments No information Advance Directives Directive Yes / No Effective Date File Name No information Encounters Encounter Practice Location Reason(s) Diagnoses Date Provider Providers Description For Visit Copied on Encounter [facility] [place] . [facility] [address] [facility], [address] [place], , [place], [address]. [id number], tel:+ [place] [phone] tel:[phone] [facility] [place] immunodeficiency . Provider: [facility] virus [HIV] 9 [address] [facility]ounter [facility], [facility], [address] result [place], [address], [place]eks [place], [place], [place], [place] [address]. [place], [address]. [id number], not tel:+60 tel:+60 [place] specified [phone] tel:[phone] Family History Family Member Diagnosis Age At Onset No information Immunizations Vaccine Date Status Comments No information Payers Payer name Insurance type Covered republican ID Authorization(s) Rahul OSORIO [facility] CI [id number] Social History Type Description Quantity Date Captured Comments Alcohol Use Details Unknown Caffeine Use Details Unknown Tobacco Use Status Unknown Smoking Status Never smoker Sex Female Vital Signs Date / Height Weight BMI Pulse Blood Temperature Respiratory Body Head BMI Pulse Inhaled Time: Rate Pressure Rate Surface Circumference percentile Ox Ox Area No information Chief Complaint And Reason For Visit No information Reason For Referral Reason For Referral No [...] Information No information Assessments Type Assessment Date No information Goals Health Concern Goal Type Priority Status Date No information Medical Equipment Description Device [place] Device Identifier Effective Dates (start - stop ) Status No information Mental Status Date Cognitive Assessment No information Health Concerns Observation Date No information Concern Status Date No information
[2018-10-24 17:41] VITALS: BP 128/68
--- NOTE | 2018-10-24 18:38 | UC ---
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 Normally wears contacts , presents with eye glasses" -no taruma. started last night. eye crusted shut this AM. had sinus infection 2 wks ago. no pain. no flashing lights. - History of Current Complaint Chief Complaint: UCEye Stated Complaint: RT EYE COMPLAINT Time Seen by Provider: 10/24/18 17:41 Hx Last Menstrual Period: 10/10/18 Pain Intensity: 2 - Allergies/Home Medications Allergies/Adverse Reactions: Allergies Allergy/AdvReac Type Severity Reaction Status Date / Time No Known Allergies Allergy Verified 10/24/18 17:41 PMH/Surg Hx/FS Hx/Imm Hx Previously Healthy: Yes Other History Of: Negative For: Anticoagulant Therapy - Surgical History Surgical History: Yes Surgery Procedure, Year, and Place: ear tubes - Family History Known Family History: Positive: Other - no gi related disease. Negative: Cardiac Disease, Diabetes - Social History Alcohol Use: None Substance Use Type: None Smoking Status (MU): Never Smoked Tobacco Have You Smoked in the Last Year: No When Did the Patient Quit Smoking/Using Tobacco: 2013 - Immunization History Most Recent Influenza Vaccination: unknown Most Recent Pneumonia Vaccination: never Vaccination Up to Date: Yes Review of Systems All Other Systems Reviewed And Are Negative: Yes Constitutional: Positive: Negative Skin: Positive: Negative Eyes: Positive: Blurred Vision, Drainage, Eye Redness, Photophobia ENT: Positive: Negative. Negative: Sore Throat, Ear Ache, Sinus Congestion, Sinus Pain/Tenderness Respiratory: Positive: Negative Cardiovascular: Positive: Negative Gastrointestinal: Positive: Negative Motor: Positive: Negative Neurovascular: Positive: Negative Musculoskeletal: Positive: Negative Neurological: Positive: Negative Psychological: Positive: Negative Is Patient Immunocompromised?: No Physical Exam Triage Information Reviewed: Yes Appearance: Well-Appearing, No Pain Distress, Well-Nourished Vital Signs: Initial Vital Signs Temp 99.8 F 10/24/18 17:37 Pulse 75 10/24/18 17:37 Resp 16 10/24/18 17:37 BP 128/68 10/24/18 17:37 Pulse Ox 100 10/24/18 17:37 Vital Signs Reviewed: Yes Eye Exam: Normal Eyes: Positive: Conjunctiva Inflamed, Discharge - clear, Other: - mild swelling infraorbital but w/o erythema. no trauma. ENT: Positive: TMs normal - b/l scar tissue on TM., Uvula midline. Negative: TM bulging, TM dull, TM red, Sinus tenderness Dental Exam: Normal Neck exam: Normal Neck: Positive: Supple, Nontender, No Lymphadenopathy Respiratory Exam: Normal Respiratory: Positive: Lungs clear, Normal breath sounds, No respiratory distress, No accessory muscle use. Negative: Crackles, Rhonchi, Stridor, Wheezing Cardiovascular Exam: Normal Cardiovascular: Positive: RRR, No Murmur Bowel Sounds: Positive: Present Neurological Exam: Normal Psychological Exam: Normal Skin Exam: Normal Eye Complaint Course/Dx - Course Course Of Treatment: no make up or contacts for at least 5 days or until sx resolve. cool compresses. - Differential Dx/Diagnosis Differential Diagnosis/HQI/PQRI: Conjunctivitis, Hyphema, Periorbital Cellulitis , Uveitis Provider Diagnosis: Conjunctivitis Discharge - Sign-Out/Discharge Documenting (check all that apply): Patient Departure All imaging exams completed and their final reports reviewed: No Studies - Discharge Plan Condition: Stable Disposition: HOME Prescriptions: Gentamicin 0.3% OPHTH.SOLN* 1 drop RIGHT EYE Q4H 5 Days #1 btl Patient Education Materials: Conjunctivitis (ED) Referrals: No Primary Care Phys,NOPCP [Primary Care Provider] - Additional Instructions: You can follow up with an eye Dr if your symptoms increase or persist. - Billing Disposition and Condition Condition: STABLE Disposition: Home
== END 2018-10-24 18:48 | disposition home or self-care (01) ==
LOC: UCCORT 16:44
DX: H10.9 Unspecified conjunctivitis (principal)
CPT/HCPCS: 99212; G0463